=== PATIENT | female | born 1995 | race American Indian/Alaskan Native ===

== ENCOUNTER 2021-01-04 03:20 | Emergency (ER) | payer OTHER ==
[2021-01-04 03:47] VITALS: BP 94/44
[2021-01-04 04:23] LABS: Basophils % (Auto) 0.3 % (0.0-1.8); Eosinophils % (Auto) 0.5 % (0.0-4.3); Hematocrit 35.4 % (30.3-42.9); Hemoglobin 11.9 gm/dl (10.1-14.3); Lymphocytes # (Auto) 3.5 K/mm3 (1.2-5.4); Lymphocytes % (Auto) 39.6 % (13.4-35.0); Mean Corpuscular HGB Conc 34 % (30-34); Mean Corpuscular Volume 87 fl (79-97); Monocytes # (Auto) 0.7 K/mm3 (0.0-0.8); Monocytes % (Auto) 7.3 % (0.0-7.3); Platelet Count 202 K/mm3 (140-440); Red Blood Count 4.08 M/mm3 (3.65-5.03); Red Cell Distribution Width 13.7 % (13.2-15.2)
--- NOTE | 2021-01-04 04:28 | Emergency Department Report ---
HPI - General Chief Complaint: Vaginal Bleeding Time Seen by Provider: 01/04/21 03:47 - HPI HPI: This is a 25-year-old female presents to the emergency department via EMS with a complaint of having vaginal bleeding that started around 1 AM this morning. Patient says that it was heavy vaginal bleeding and she filled 3 pads. The patient is currently about 7 weeks . With this she is G2, P1. She has some mild pelvic cramping discomfort. She has not taken anything for symptoms prior to presentation. She follows with [facility]. ED Past Medical Hx - Past Medical History Previous Medical History?: No - Surgical History Past Surgical History?: No - Social History Smoking Status: Never Smoker ED Review of Systems ROS: Stated complaint: VAGINAL BLEEDING Other details as noted in HPI Comment: All other systems reviewed and negative Constitutional: denies: chills, fever Eyes: denies: eye pain, vision change ENT: denies: ear pain, throat pain Respiratory: denies: cough, shortness of breath Cardiovascular: denies: chest pain, palpitations Gastrointestinal: denies: abdominal pain, vomiting Genitourinary: other (vaginal bleeding, pelvic cramping). denies: dysuria Musculoskeletal: denies: back pain, arthralgia Skin: denies: rash, lesions Neurological: denies: headache, weakness Physical Exam - Physical Exam Vital Signs: Vital Signs 01/04/21 01/04/21 03:46 04:06 Temperature 97.9 F Pulse Rate 69 Respiratory 16 18 Rate Blood Pressure 94/44 [Left] O2 Sat by Pulse 100 100 Oximetry Physical Exam: GENERAL: The patient is well-developed well-nourished. HENT: Normocephalic. Atraumatic. Patient has moist mucous membranes. EYES: Extraocular motions are intact. NECK: Supple. Trachea is midline. CHEST/LUNGS: Clear to auscultation. There is no respiratory distress noted. HEART/CARDIOVASCULAR: Regular. There is no tachycardia. There is no murmur. ABDOMEN: Abdomen is soft, nontender. Patient has normal bowel sounds. SKIN: Skin is warm and dry. NEURO: The patient is awake, alert, and oriented. The patient is cooperative. Normal speech. MUSCULOSKELETAL: There is no tenderness or deformity. There is no limitation range of motion. PELVIC: Deferred ED Course Vital Signs 01/04/21 01/04/21 03:46 04:06 Temperature 97.9 F Pulse Rate 69 Respiratory 16 18 Rate Blood Pressure 94/44 [Left] O2 Sat by Pulse 100 100 Oximetry - Consultations Consultation #1: 01/04/21 06:59 I spoke to the INVESTMENT PROFESSIONAL on-call, Dr. Landa, regarding the patient's presentation and ultrasound findings of an incomplete miscarriage. She has recommended that the patient receive 0.2 mg Methergine IM in the emergency department and then go home on 0.2 mg oral Methergine 3 times daily x3 days. Otherwise the patient can follow-up with her [facility] outpatient. ED Medical Decision Making - Lab Data Result diagrams: 01/04/21 03:55 01/04/21 03:55 Lab Results 01/04/21 01/04/21 01/04/21 Range/Units 03:55 03:55 03:55 WBC 9.0 (4.5-11.0) K/mm3 RBC 4.08 (3.65-5.03) M/mm3 Hgb 11.9 (10.1-14.3) gm/dl Hct 35.4 (30.3-42.9) % MCV 87 (79-97) fl MCH 29 (28-32) pg MCHC 34 (30-34) % RDW 13.7 (13.2-15.2) % Plt Count 202 (140-440) K/mm3 Lymph % (Auto) 39.6 H (13.4-35.0) % Weakley % (Auto) 7.3 (0.0-7.3) % Eos % (Auto) 0.5 (0.0-4.3) % Baso % (Auto) 0.3 (0.0-1.8) % Lymph # (Auto) 3.5 (1.2-5.4) K/mm3 Weakley # (Auto) 0.7 (0.0-0.8) K/mm3 Eos # (Auto) 0.0 (0.0-0.4) K/mm3 Baso # (Auto) 0.0 (0.0-0.1) K/mm3 Seg Neutrophils % 52.3 (40.0-70.0) % Seg Neutrophils # 4.7 (1.8-7.7) K/mm3 Sodium 135 L (137-145) mmol/L Potassium 3.8 (3.6-5.0) mmol/L Chloride 100.9 (98-107) mmol/L Carbon Dioxide 23 (22-30) mmol/L Anion Gap 15 mmol/L BUN 9 (7-17) mg/dL Creatinine 0.6 (0.6-1.2) mg/dL Estimated GFR > 60 ml/min BUN/Creatinine Ratio 15 % Glucose 98 (65-100) mg/dL Calcium 8.8 (8.4-10.2) mg/dL HCG, Quant 12069 H (0-4) mIU/mL Blood Type Ord Rhogam Gestat Weeks 01/04/21 Range/Units 03:55 WBC (4.5-11.0) K/mm3 RBC (3.65-5.03) M/mm3 Hgb (10.1-14.3) gm/dl Hct (30.3-42.9) % MCV (79-97) fl MCH (28-32) pg MCHC (30-34) % RDW (13.2-15.2) % Plt Count (140-440) K/mm3 Lymph % (Auto) (13.4-35.0) % Weakley % (Auto) (0.0-7.3) % Eos % (Auto) (0.0-4.3) % Baso % (Auto) (0.0-1.8) % Lymph # (Auto) (1.2-5.4) K/mm3 Weakley # (Auto) (0.0-0.8) K/mm3 Eos # (Auto) (0.0-0.4) K/mm3 Baso # (Auto) (0.0-0.1) K/mm3 Seg Neutrophils % (40.0-70.0) % Seg Neutrophils # (1.8-7.7) K/mm3 Sodium (137-145) mmol/L Potassium (3.6-5.0) mmol/L Chloride (98-107) mmol/L Carbon Dioxide (22-30) mmol/L Anion Gap mmol/L BUN (7-17) mg/dL Creatinine (0.6-1.2) mg/dL Estimated GFR ml/min BUN/Creatinine Ratio % Glucose (65-100) mg/dL Calcium (8.4-10.2) mg/dL HCG, Quant (0-4) mIU/mL Blood Type A POSITIVE Ord Rhogam Gestat Weeks Cancelled - Radiology Data Radiology results: report reviewed US OB <= 14 weeks fetus, US OB transvaginal INDICATION / CLINICAL INFORMATION: , vaginal bleeding. COMPARISON: None available. FINDINGS: Endometrium is heterogeneous and slightly thickened, measuring 2.2 cm, but there is no evidence of intrauterine . Incidental nabothian cyst in cervix. Left ovary contains a 1.3 cm cyst, probably corpus luteal cyst. Right ovary is normal. Color Doppler imaging shows vascular flow in both ovaries. No free fluid. IMPRESSION: 1. Thickened and inhomogeneous endometrium but no intrauterine , consistent with incomplete . - Medical Decision Making This patient presents to the ED with vaginal bleeding and mild pelvic cramping, while about 7 weeks , that started about 1 AM. She had recently been to her OBGYN through [facility] and says she was told she had twins. On examination the patient did not appear any acute distress. Labs shows a hemoglobin of about 11.5, normal BMP, a BHCG of about 20,000 and she has a blood type of A+ and does not need the rhogam shot. Her vaginal bleeding has decreased by not resolved. An ultrasound was done that shows what appears to be an incomplete miscarriage. The OBGYN workers compensation claims specialist was contacted who recommends giving IM methergine in the ED and a prescription for oral methergine TID x 3 days. Then the patient can follow up with her OBGYN outpatient. I spoke with the patient regarding the lab and imaging results, the findings of an incomplete miscarriage, and the recommendation of treatment with methergine. The patient has decided that she does not want to start taking the methergine now in the ED and instead wants to follow up with her OBGYN at [facility]. I explained to the patient that she appears to still have some products of conception in the uterus secondary to the incomplete miscarriage and this can lead to increased bleeding, increased pelvic pain, and infection. She is awake, alert, oriented and has a normal decision making capacity. She understands the risks of not taking the methergine and of having an incomplete miscarriage with retained products of conception, but she has still decided to leave and follow up with her OBGYN. The patient signed the AMA form. She does understand that she can return to the ED if she changes her mind, for re-evaluation, or at any time with any concerns, complaints or any acute distress. Critical Care Time: No Critical care attestation.: If time is entered above; I have spent that time in minutes in the direct care of this critically ill patient, excluding procedure time. ED Disposition Clinical Impression: Incomplete Disposition: DC-07 LEFT AGAINST MED ADVICE Is pt being admited?: No Condition: Stable Instructions: Incomplete Miscarriage Additional Instructions: Please return to the emergency department immediately if you change your mind about being treated with the Methergine. Please call your [facility] immediately for an appointment today. Referrals: OBGYN, Your [Other] - [facility] Forms: AMA Form Time of Disposition: 06:59
[2021-01-04 04:31] LABS: Blood Urea Nitrogen 9 mg/dL (7-17); Calcium 8.8 mg/dL (8.4-10.2); Hemolysis Index 0
[2021-01-04 04:36] LABS: BUN/Creatinine Ratio 15
--- NOTE | 2021-01-04 06:25 | Ultrasound Report ---
US OB <= 14 weeks fetus, US OB transvaginal INDICATION / CLINICAL INFORMATION: , vaginal bleeding. COMPARISON: None available. FINDINGS: Endometrium is heterogeneous and slightly thickened, measuring 2.2 cm, but there is no evidence of in trauterine . Incidental nabothian cyst in cervix. Left ovary contains a 1.3 cm cyst, probably corpus luteal cyst. Right ovary is normal. Color Doppler imaging shows vascular flow in both ovaries. No free fluid. IMPRESSION: 1. Thickened and inhomogeneous endometrium but no intrauterine , consistent with incomplete . Signer Name: Riley Contreras MD Signed: 01/04/2021 6:21 AM Workstation Name: [id number]
== END 2021-01-04 07:20 | disposition left against medical advice (07) ==
LOC: ED 03:20
DX: O03.4 Incomplete spontaneous abortion without complication (principal)
CPT/HCPCS: 36415; 76801; 76817; 80048; 84702; 85025; 86900; 86901